=== PATIENT | male | born 1980 | race Caucasian/White ===

== ENCOUNTER 2016-10-24 23:26 | Emergency (ER) | payer MEDICAID ==
[2014-12-13 06:59] VITALS: BMI 21.9
[~2016-10-24 23:26] MED LIST: PERCOCET 10/3251 TA1 PO
== END 2016-10-25 02:25 | disposition home or self-care (01) ==
LOC: D.ER 23:26
DX: J20.9 Acute bronchitis, unspecified (principal); R07.9 Chest pain, unspecified